=== PATIENT | female | born 1995 | race African-American/Black ===

== ENCOUNTER 2022-05-03 17:22 | Emergency (ER) | payer SELFPAY ==
[~2022-05-03] VITALS: Ht 157.5 cm; Wt 50.0 kg
[2022-05-03] MEDS ORDERED: HALOPERIDOL LACTATE 5MG/ML VIAL IM STA (17:40)
[2022-05-03 18:36] LABS: CLARITY URINE CLEAR (CLEAR); COLOR URINE YELLOW (YELLOW); KETONES URINE NEGATIVE (NEGATIVE); LEUKOCYTE ESTERASE URINE NEGATIVE (NEGATIVE); NITRITE URINE NEGATIVE (NEGATIVE); OCCULT BLOOD URINE NEGATIVE (NEGATIVE); PROTEIN URINE NEGATIVE (NEGATIVE); SPECIFIC GRAVITY URINE 1.004 (1.005-1.030); UROBILINOGEN URINE 0.2 E.U./dL (0.2-1.0)
[2022-05-03 18:52] LABS: BASOPHILS % 0.5 % (0.0-2.0); EOSINOPHILS % 0.6 % (0.0-5.0); HEMATOCRIT. 35.9 % (36.0-48.0); HEMOGLOBIN. 12.4 g/dL (12.0-16.0); LYMPHOCYTES % 34.6 % (20.0-50.0); MEAN CORPUSCULAR HEMOGLOBIN 30.8 pg (28.0-32.0); MEAN PLATELET VOLUME 6.9 fl (7.4-10.4); MONOCYTES % 3.9 % (2.0-8.0); NEUTROPHILS % 60.4 % (40.0-76.0); PLATELET 243 x1000/uL (130-400); RED BLOOD CELL COUNT 4.03 mill/uL (4.2-5.4); RED CELL DISTRIBUTION WIDTH 14.2 % (11.6-14.6)
[2022-05-03 19:00] LABS: CHLORIDE 111 mEq/L (98-107)
[2022-05-03 19:23] LABS: *AMPHETAMINES SCREEN URINE NEGATIVE (NEGATIVE); *BARBITURATES SCREEN URINE NEGATIVE (NEGATIVE); CANNABINOID URINE SCREEN NEGATIVE (NEGATIVE); METHADONE URINE SCREEN NEGATIVE (NEGATIVE); OPIATES URINE SCREEN NEGATIVE (NEGATIVE); PHENCYCLIDINE URINE SCREEN NEGATIVE (NEGATIVE)
[2022-05-03 19:26] LABS: ETHANOL BLOOD 285 mg/dL
[2022-05-03 19:29] LABS: *BENZODIAZEPINES SCREEN URINE PRESUMTIVE POSITIVE (NEGATIVE); *COCAINE SCREEN URINE PRESUMTIVE POSITIVE (NEGATIVE)
[2022-05-03 22:00] VITALS: BP 135/84
[2022-05-03 23:31] LABS: HEPATITIS B SURFACE ANTIGEN NEGATIVE
[2022-05-05 08:08] LABS: HIV SCREEN 4G Non Reactive (Non Reactive)
== END 2022-05-04 00:09 | disposition home or self-care (01) ==
LOC: ER 17:22
DX: F19.10 Other psychoactive substance abuse, uncomplicated (principal); F15.10 Other stimulant abuse, uncomplicated; Z20.822 Contact with and (suspected) exposure to COVID-19
CPT/HCPCS: 36415; 80053; 80305; 80320; 81003; 81025; 85025; 86705; 86709; 86803; 87340; 87389; 96372; 99291; C9803; J1630; U0003; U0005; G0480